=== PATIENT | female | born 1995 | race African-American/Black ===

== ENCOUNTER 2018-02-18 10:34 | Emergency (ER) | payer OTHER ==
[~2018-02-18] VITALS: Ht 162.6 cm; Wt 59.0 kg
[2018-02-18] MEDS ORDERED: ACETAMINOPHEN 650MG/20.3ML UDC PO ONE (12:00)
[2018-02-18] MEDS ORDERED: CYCLOBENZAPRINE 10MG TABLET PO SCH (12:00)
[2018-02-18] MEDS ORDERED: IBUPROFEN 600MG TABLET PO ONE (13:15)
[2018-02-18] MEDS ORDERED: ACETAMINOPHEN 650MG/20.3ML UDC ONE (14:11)
[2018-02-18 16:50] VITALS: BP 111/75
== END 2018-02-18 17:45 | disposition home or self-care (01) ==
LOC: ER 12:38
DX: S40.011A Contusion of right shoulder, initial encounter (principal); S10.93XA Contusion of unspecified part of neck, initial encounter; W06.XXXA Fall from bed, initial encounter; Y93.89 Activity, other specified; Y92.89 Other specified places as the place of occurrence of the external cause
CPT/HCPCS: 73030; 81025; 99284; A4565

== ENCOUNTER 2019-02-26 21:57 | Emergency (ER) | payer OTHER ==
[~2019-02-26] VITALS: Ht 160 cm; Wt 62.0 kg
[2019-02-27] MEDS ORDERED: FLUCONAZOLE 100MG TABLET PO ONE
[2019-02-27] MEDS ORDERED: FLUCONAZOLE 150MG TABLET PO SCH (00:08)
[2019-02-27 02:05] LABS: COLOR URINE YELLOW (YELLOW); KETONES URINE NEGATIVE (NEGATIVE); LEUKOCYTE ESTERASE URINE 2+ (NEGATIVE); NITRITE URINE NEGATIVE (NEGATIVE); OCCULT BLOOD URINE NEGATIVE (NEGATIVE); PH URINE 6.5 (4.5-8.0); PROTEIN URINE NEGATIVE (NEGATIVE); SPECIFIC GRAVITY URINE 1.009 (1.005-1.030); UROBILINOGEN URINE 0.2 E.U./dL (0.2-1.0)
[2019-02-27 02:07] LABS: CLARITY URINE HAZY (CLEAR)
[2019-02-27 03:03] VITALS: BP 100/64
[2019-02-27] MEDS ORDERED: CEPHALEXIN 250MG CAPSULE PO SCH (03:06)
[2019-02-27] MEDS ORDERED: MICONAZOLE NITRATE 100MG VAG SUPP VG SCH (21:00)
== END 2019-02-27 03:21 | disposition home or self-care (01) ==
LOC: ER 21:57
DX: B37.3 Candidiasis of vulva and vagina (principal); N39.0 Urinary tract infection, site not specified; F12.10 Cannabis abuse, uncomplicated
CPT/HCPCS: 81025; 99284

== ENCOUNTER 2019-03-12 00:11 | Emergency (ER) | payer MEDICAID, OTHER ==
[~2019-03-12] VITALS: Ht 162.6 cm; Wt 60.5 kg
[2019-03-12] MEDS ORDERED: HYDROCODONE/ACETAMINOPHEN 5/325MG TABLET PO ONE (02:15)
[2019-03-12 04:05] VITALS: BP 131/77
== END 2019-03-12 04:08 | disposition home or self-care (01) ==
LOC: ER 00:11
DX: S00.83XA Contusion of other part of head, initial encounter (principal); Y07.03 Male partner, perpetrator of maltreatment and neglect; Y04.2XXA Assault by strike against or bumped into by another person, initial encounter; Y93.89 Activity, other specified; Y92.89 Other specified places as the place of occurrence of the external cause
CPT/HCPCS: 70486; 81025; 99284

== ENCOUNTER 2019-06-06 21:51 | Emergency (ER) | payer MEDICARE, MEDICAID ==
[~2019-06-06] VITALS: Ht 162.6 cm; Wt 60.0 kg
[2019-06-07 00:41] VITALS: BP 95/58
== END 2019-06-07 00:49 | disposition home or self-care (01) ==
LOC: ER 21:51
DX: R11.0 Nausea (principal); R10.9 Unspecified abdominal pain; F17.200 Nicotine dependence, unspecified, uncomplicated; F12.10 Cannabis abuse, uncomplicated
CPT/HCPCS: 99281

== ENCOUNTER 2019-09-09 22:16 | Emergency (ER) | payer MEDICARE, MEDICAID ==
[~2019-09-09] VITALS: Ht 160 cm; Wt 57.2 kg
[2019-09-09 23:48] VITALS: BP 122/79
== END 2019-09-10 | disposition home or self-care (01) ==
LOC: ER 22:16
DX: R51 Headache (principal); F12.10 Cannabis abuse, uncomplicated; H53.8 Other visual disturbances
CPT/HCPCS: 99281

== ENCOUNTER 2023-03-27 21:41 | Emergency (ER) | payer MEDICARE, MEDICAID ==
[~2023-03-27] VITALS: Ht 167.6 cm; Wt 50.0 kg
[2023-03-27 21:48] VITALS: BP 120/74
[2023-03-27 22:52] LABS: BASOPHILS % 0.4 % (0.0-2.0); EOSINOPHILS % 0.2 % (0.0-5.0); HEMATOCRIT. 36.9 % (36.0-48.0); HEMOGLOBIN. 12.7 g/dL (12.0-16.0); LYMPHOCYTES % 43.9 % (20.0-50.0); MEAN CORPUSCULAR HEMOGLOBIN 33.3 pg (28.0-32.0); MEAN CORPUSCULAR VOLUME 96.7 fL (81.0-99.0); MEAN PLATELET VOLUME 7.9 fl (7.4-10.4); MONOCYTES % 7.2 % (2.0-8.0); NEUTROPHILS % 48.3 % (40.0-76.0); PLATELET 262 x1000/uL (130-400); RED BLOOD CELL COUNT 3.81 mill/uL (4.2-5.4); RED CELL DISTRIBUTION WIDTH 13.7 % (11.6-14.6)
[2023-03-27 22:58] LABS: CHLORIDE 106 mEq/L (98-107)
[2023-03-27 23:02] LABS: HCG SCREEN NEGATIVE
[2023-03-27 23:06] LABS: ETHANOL BLOOD 85 mg/dL
[2023-03-27 23:59] LABS: *AMPHETAMINES SCREEN URINE NEGATIVE (NEGATIVE); *BARBITURATES SCREEN URINE NEGATIVE (NEGATIVE); *BENZODIAZEPINES SCREEN URINE NEGATIVE (NEGATIVE); *COCAINE SCREEN URINE NEGATIVE (NEGATIVE); METHADONE URINE SCREEN NEGATIVE (NEGATIVE); OPIATES URINE SCREEN NEGATIVE (NEGATIVE); PHENCYCLIDINE URINE SCREEN NEGATIVE (NEGATIVE)
[2023-03-28 00:11] LABS: CANNABINOID URINE SCREEN PRESUMTIVE POSITIVE (NEGATIVE)
== END 2023-03-28 00:30 | disposition home or self-care (01) ==
LOC: ER 21:41
DX: F10.129 Alcohol abuse with intoxication, unspecified (principal); Y90.4 Blood alcohol level of 80-99 mg/100 ml
CPT/HCPCS: 36415; 80053; 80305; 80320; 84703; 85025; 99283; G0480

== ENCOUNTER 2023-05-19 22:42 | Emergency (ER) | payer MEDICARE, OTHER ==
[~2023-05-19] VITALS: Ht 165.1 cm; Wt 60.0 kg
[2023-05-19] MEDS ORDERED: ACETAMINOPHEN 325MG TABLET PO ONE (23:00)
[2023-05-19 23:15] VITALS: BP 126/85
[2023-05-19] MEDS ORDERED: IBUPROFEN 600MG TABLET PO ONE (23:15)
[2023-05-19] MEDS ORDERED: TRAMADOL 50MG TABLET PO ONE (23:15)
== END 2023-05-20 01:00 | disposition home or self-care (01) ==
LOC: ER 22:42
DX: S82.202A Unspecified fracture of shaft of left tibia, initial encounter for closed fracture (principal); J45.909 Unspecified asthma, uncomplicated; F12.10 Cannabis abuse, uncomplicated; W18.39XA Other fall on same level, initial encounter; Y93.89 Activity, other specified; Y92.89 Other specified places as the place of occurrence of the external cause; Y99.8 Other external cause status
CPT/HCPCS: 29515; 73610; 73630; 99284

== ENCOUNTER 2023-08-02 04:28 | Emergency (ER) | payer MEDICARE, MEDICAID ==
[~2023-08-02] VITALS: Ht 162.6 cm; Wt 59.0 kg
[2023-08-02 04:36] VITALS: TEMP 98.3; O2SAT 99
[2023-08-02 05:01] LABS: BASOPHILS % 0.4 % (0.0-2.0); EOSINOPHILS % 0.2 % (0.0-5.0); HEMATOCRIT. 35.3 % (36.0-48.0); HEMOGLOBIN. 11.8 g/dL (12.0-16.0); LYMPHOCYTES % 49.3 % (20.0-50.0); MEAN CORPUSCULAR HEMOGLOBIN 32.1 pg (28.0-32.0); MEAN CORPUSCULAR HGB CONC 33.4 g/dL (31.0-37.0); MEAN CORPUSCULAR VOLUME 95.9 fL (81.0-99.0); MEAN PLATELET VOLUME 7.1 fl (7.4-10.4); MONOCYTES % 7.4 % (2.0-8.0); NEUTROPHILS % 42.7 % (40.0-76.0); PLATELET 254 x1000/uL (130-400); RED BLOOD CELL COUNT 3.69 mill/uL (4.2-5.4); RED CELL DISTRIBUTION WIDTH 13.7 % (11.6-14.6); WHITE BLOOD COUNT 5.8 x1000/uL (4.5-11.0)
[2023-08-02 05:04] LABS: CHLORIDE 104 mEq/L (98-107); INDEX HEMOLYSI 1 (1-3); INDEX ICTERIC 1 (1-4); INDEX LIPEMIC 1 (1-3); POTASSIUM 3.6 mEq/L (3.5-5.1); SODIUM 136 mEq/L (136-145)
[2023-08-02 05:15] LABS: ALANINE AMINOTRANSFERASE 17 IU/L (13-61); ASPARTATE AMINOTRANSFERASE 20 IU/L (15-37); BILIRUBIN TOTAL 0.5 mg/dL (0.1-1.0); CARBON DIOXIDE 26 mEq/L (21-32); CREATININE 0.6 mg/dL (0.6-1.3); GLUCOSE 92 mg/dL (70-105); PROTEIN TOTAL 7.7 g/dL (6.0-8.3); UREA NITROGEN BLOOD 9 mg/dL (7-21)
[2023-08-02 05:34] LABS: TROPONIN I HIGH SENSITIVITY < 4 ng/L (<54)
[2023-08-02] MEDS ORDERED: IBUPROFEN 600MG TABLET PO ONE (06:00)
[2023-08-02 06:02] VITALS: BP 127/87; PULSE 88; RESP 16
[2023-08-02 06:09] LABS: CLARITY URINE CLOUDY (CLEAR); COLOR URINE YELLOW (YELLOW); GLUCOSE URINE NEGATIVE (NEGATIVE); KETONES URINE TRACE (NEGATIVE); LEUKOCYTE ESTERASE URINE NEGATIVE (NEGATIVE); NITRITE URINE NEGATIVE (NEGATIVE); OCCULT BLOOD URINE NEGATIVE (NEGATIVE); PROTEIN URINE NEGATIVE (NEGATIVE); SPECIFIC GRAVITY URINE 1.022 (1.005-1.030)
[2023-08-02] MEDS ORDERED: DOXY100C5 MT (06:43)
[2023-08-02] MEDS ORDERED: METR-167 MT (06:43)
[2023-08-02] MEDS ORDERED: CEFTRIAXONE SODIUM 500 MG/VIAL IM ONE (06:45)
[2023-08-02 06:53] LABS: BACTERIA URINE 1+; RBC URINE NONE SEEN /hpf (0-2); SQUAMOUS EPITHELIAL CELL URINE 2+ /lpf (RARE/1+); WBC URINE 0-2 /hpf (0-2)
[2023-08-06 04:08] LABS: CHLAMYDIA TRACHOMATIS NAA Negative (Negative); NEISSERIA GONORRHOEAE NAA Negative (Negative)
== END 2023-08-02 07:05 | disposition home or self-care (01) ==
LOC: ER 04:28
DX: N73.0 Acute parametritis and pelvic cellulitis (principal); R07.89 Other chest pain; J45.909 Unspecified asthma, uncomplicated; F12.10 Cannabis abuse, uncomplicated
CPT/HCPCS: 99285; 71045; 87491; 87591; 80053; 81003; 81025; 85025; 87210; 84484; 36415; 93005; 96372; J0696

== ENCOUNTER 2023-12-19 15:27 | Emergency (ER) | payer MEDICARE, MEDICAID ==
[~2023-12-19] VITALS: Ht 167.6 cm; Wt 54.0 kg
[~2023-12-19 15:27] MED LIST: DOXY100C5 MT; METR-167 MT
[2023-12-19 15:36] VITALS: BP 134/92; PULSE 95; RESP 16; TEMP 98.7; O2SAT 100
[2023-12-19 16:22] LABS: BG BASE EXCESS -1.4 mmol/L (-2.0-2.0); BG CARBOXYHEMOGLOBIN 0.1 % (0.5-1.5); BG DEOXYHEMOGLOBIN 3.1 % (0.0-5.0); BG HCO3 ACT 22.1 mmol/L (22.0-26.0); BG METHEMOGLOBIN 0.4 % (0.0-1.5); BG OXYGEN SATURATION 96.9 % (92.0-98.5); BG OXYHEMOGLOBIN 96.4 % (94.0-97.0); BG PCO2 33.4 mmHg (35.0-45.0); BG PH 7.438 (7.350-7.450); BG PO2 86.6 mmHg (75.0-100.0); BG SAMPLE SITE RIGHT RADIAL; BG TOTAL HEMOGLOBIN 12.6 g/dL (12.0-18.0); BG VENT MODE ROOM AIR
== END 2023-12-19 17:00 | disposition home or self-care (01) ==
LOC: ER 15:27
DX: R07.89 Other chest pain (principal); F12.10 Cannabis abuse, uncomplicated; J45.909 Unspecified asthma, uncomplicated; Z98.890 Other specified postprocedural states; Z86.59 Personal history of other mental and behavioral disorders
CPT/HCPCS: 36600; 71045; 82375; 82805; 93005; 99285

== ENCOUNTER 2025-01-18 22:30 | Emergency (ER) | payer MEDICARE, MEDICAID ==
[~2025-01-18] VITALS: Ht 162.6 cm; Wt 59.0 kg
[2025-01-18 22:35] VITALS: O2SAT 97
[2025-01-18 22:49] VITALS: BP 138/94; PULSE 94; RESP 18; TEMP 37.1; O2SAT 100
[2025-01-19] MEDS ORDERED: IBUP-2030 MT (01:32)
[2025-01-19] MEDS: IBUPROFEN 800MG TABLET PO ONE (01:40)
[2025-01-19 02:04] LABS: CLARITY URINE CLEAR (CLEAR); COLOR URINE DARK YELLOW (YELLOW); GLUCOSE URINE NEGATIVE (NEGATIVE); KETONES URINE 1+ (NEGATIVE); LEUKOCYTE ESTERASE URINE NEGATIVE (NEGATIVE); NITRITE URINE NEGATIVE (NEGATIVE); OCCULT BLOOD URINE NEGATIVE (NEGATIVE); PH URINE 5.5 (4.5-8.0); PROTEIN URINE TRACE (NEGATIVE); SPECIFIC GRAVITY URINE 1.029 (1.005-1.030)
[2025-01-19 04:53] LABS: SQUAMOUS EPITHELIAL CELL URINE 1+ /lpf (RARE/1+)
[2025-01-19 04:54] LABS: BACTERIA URINE 1+; RBC URINE 0-2 /hpf (0-2); WBC URINE 0-2 /hpf (0-2)
== END 2025-01-19 01:49 | disposition home or self-care (01) ==
LOC: ER 22:30
DX: R51.9 Headache, unspecified (principal); J45.909 Unspecified asthma, uncomplicated; F12.90 Cannabis use, unspecified, uncomplicated; F41.9 Anxiety disorder, unspecified; Z79.899 Other long term (current) drug therapy; Y08.89XA Assault by other specified means, initial encounter; Y93.89 Activity, other specified; Y92.89 Other specified places as the place of occurrence of the external cause; Y99.8 Other external cause status
CPT/HCPCS: 71045; 80048; 81003; 99284

== ENCOUNTER 2025-05-21 09:52 | Emergency (ER) | payer MEDICARE, MEDICAID ==
[~2025-05-21] VITALS: Ht 157.5 cm; Wt 61.2 kg
[~2025-05-21 09:52] MED LIST changes: +IBUP-2030 MT
[2025-05-21 09:53] VITALS: TEMP 36.8; O2SAT 100
[2025-05-21] MEDS: TETANUS, DIPHTHERIA, PERTUSSIS VAC/PF 0.5ML (>10YR OLD) IM ONE (11:11)
[2025-05-21] MEDS: BACITRACIN ZINC OINT UDPKT TOP ONE (11:13)
[2025-05-21] MEDS: IBUPROFEN 600MG TABLET PO ONE (11:13)
[2025-05-21] MEDS: LIDOCAINE HCL/PF 1% 10 MG/ML 5ML VIAL INFIL ONE (11:13)
[2025-05-21] MEDS ORDERED: BO1 TP (11:38)
[2025-05-21 12:00] VITALS: BP 124/72; PULSE 82; RESP 16; O2SAT 100
== END 2025-05-21 12:02 | disposition home or self-care (01) ==
LOC: ER 09:52
DX: S71.111A Laceration without foreign body, right thigh, initial encounter (principal); F12.10 Cannabis abuse, uncomplicated; F41.9 Anxiety disorder, unspecified; J45.909 Unspecified asthma, uncomplicated; Z88.0 Allergy status to penicillin; Z79.899 Other long term (current) drug therapy; Z98.890 Other specified postprocedural states; W26.8XXA Contact with other sharp object(s), not elsewhere classified, initial encounter; Y93.89 Activity, other specified; Y92.89 Other specified places as the place of occurrence of the external cause; Y99.8 Other external cause status
CPT/HCPCS: 99283; 90715; 12001; 90471; J2003

== ENCOUNTER 2025-05-23 18:46 | Emergency (ER) | payer MEDICARE, MEDICAID ==
[~2025-05-23] VITALS: Ht 162.6 cm; Wt 59.0 kg
[~2025-05-23 18:46] MED LIST changes: +BO1 TP
[2025-05-23 18:47] VITALS: O2SAT 100
[2025-05-23 18:52] VITALS: BP 133/84; PULSE 83; RESP 18; TEMP 36.6; O2SAT 99
[2025-05-23] MEDS ORDERED: BO1 TP (20:30)
== END 2025-05-23 20:47 | disposition home or self-care (01) ==
LOC: ER 18:46
DX: J45.909 Unspecified asthma, uncomplicated (principal); Z48.00 Encounter for change or removal of nonsurgical wound dressing; Z88.0 Allergy status to penicillin; Z79.899 Other long term (current) drug therapy
CPT/HCPCS: 99282

== ENCOUNTER 2025-05-29 16:15 | Emergency (ER) | payer MEDICARE, MEDICAID ==
[~2025-05-29] VITALS: Ht 162.6 cm; Wt 59.0 kg
[2025-05-29 16:21] VITALS: O2SAT 98
[2025-05-29 17:39] VITALS: BP 110/70; PULSE 85; RESP 18; TEMP 36.7; O2SAT 98
[2025-05-29] MEDS: BACITRACIN ZINC OINT UDPKT TOP ONE (17:39)
== END 2025-05-29 17:40 | disposition home or self-care (01) ==
LOC: ER 16:15
DX: S71.111A Laceration without foreign body, right thigh, initial encounter (principal); I10 Essential (primary) hypertension; J45.909 Unspecified asthma, uncomplicated; Z48.02 Encounter for removal of sutures; Z88.0 Allergy status to penicillin; F12.90 Cannabis use, unspecified, uncomplicated
CPT/HCPCS: 99282

== ENCOUNTER 2025-06-04 12:40 | Emergency (ER) | payer MEDICARE, MEDICAID ==
[~2025-06-04] VITALS: Ht 162.6 cm; Wt 54.0 kg
[2025-06-04 13:31] VITALS: BP 112/71; PULSE 82; RESP 16; TEMP 37.1; O2SAT 100
[2025-06-04] MEDS: BACITRACIN ZINC OINT UDPKT TOP ONE (13:31)
== END 2025-06-04 13:32 | disposition home or self-care (01) ==
LOC: ER 12:40
DX: S71.111D Laceration without foreign body, right thigh, subsequent encounter (principal); J45.909 Unspecified asthma, uncomplicated; F41.9 Anxiety disorder, unspecified; F12.90 Cannabis use, unspecified, uncomplicated; Z88.0 Allergy status to penicillin; X58.XXXD Exposure to other specified factors, subsequent encounter
CPT/HCPCS: 99282